=== PATIENT | male | born 1940 | race Caucasian/White ===

== ENCOUNTER 2018-06-04 14:28 | Day surgery (SDC) | payer OTHER, MEDICARE ==
[2018-05-31 13:22] LABS: BASOPHILS # (AUTO) 0.1 X10'3 (0-0.2); BASOPHILS % (AUTO) 0.6 % (0-1); EOSINOPHILS # (AUTO) 0.1 X10'3 (0-0.9); EOSINOPHILS % (AUTO) 1.6 % (0-6); HEMATOCRIT 42.7 % (42.0-52.0); HEMOGLOBIN 14.9 g/dl (14.0-17.9); LYMPHOCYTES # (AUTO) 1.4 X10'3 (1.1-4.8); MEAN CORPUSCULAR HEMOGLOBIN 32.6 PG (27.0-31.0); MEAN CORPUSCULAR HGB CONC 34.9 g/dL (33.0-36.5); MEAN CORPUSCULAR VOLUME 93.3 FL (78-98); MEAN PLATELET VOLUME 8.1 FL (7.4-10.4); MONOCYTES # (AUTO) 0.4 X10'3 (0-0.9); NEUTROPHILS # (AUTO) 6.7 X10'3 (1.8-7.7); NEUTROPHILS % (AUTO) 76.8 % (42-75); PLATELET COUNT 179 X10'3 (140-440); RED BLOOD COUNT 4.58 X10'6 (4.70-6.10); RED CELL DISTRIBUTION WIDTH 13.7 % (11.5-14.5); WHITE BLOOD COUNT 8.7 X10'3 (4.5-11.0)
[2018-05-31 13:31] LABS: ANION GAP 7 (8-16); BLOOD UREA NITROGEN 18 MG/DL (7-18); BUN/CREATININE RATIO 12.4 (5.4-32.0); CALCIUM 9.3 MG/DL (8.5-10.1); CHLORIDE 102 MMOL/L (99-107); CREATININE 1.45 MG/DL (0.60-1.10); GLUCOSE 93 MG/DL (70-104); POTASSIUM 4.3 MMOL/L (3.5-5.1); SODIUM 138 MMOL/L (135-145); TOTAL CARBON DIOXIDE 28.8 MMOL/L (24-32); eGFR 47 ML/MIN
[2018-05-31 13:34] LABS: INR 1.1 INR; PARTIAL THROMBOPLASTIN TIME 28 SECONDS (22-32); PROTHROMBIN TIME 11.1 SECONDS (9.0-12.0)
[2018-06-04] VITALS (12 sets, daily range): BP systolic 103–133; BP diastolic 57–88
[~2018-06-04] VITALS: Ht 188 cm; Wt 89.4 kg
[~2018-06-04 14:28] MED LIST: DULO-31 PO; GABA-532 PO; GLIP10TA11 PO; HYDR-3964 PO; METF500T PO; NORT25CA PO; OMEP20TA5 PO; PRAZ1CAP5 PO; SILD50TA PO; TRAM50TA2 PO
[2018-06-04] MEDS ORDERED: normal saline 1000ml 1,000 ML IV SCH (14:50)
[2018-06-04] MEDS ORDERED: fentaNYL/PF 50MCG/1 ML 2ML syringe IV ONE (14:50)
[2018-06-04] MEDS ORDERED: MIDAZolam 5mg/ml 2ml vial IV ONE (14:50)
[2018-06-04] MEDS ORDERED: APIX5TAB3 PO (15:46)
[2018-06-04] MEDS ORDERED: DILT120C20 PO (15:46)
[2018-06-04] MEDS ORDERED: METO200T49 PO (15:46)
[2018-06-04] MEDS ORDERED: AMIO200T40 PO (15:46)
== END 2018-06-04 20:05 | disposition home or self-care (01) ==
LOC: SSTAY O 14:28
PROVIDERS: ATTEND Internal Medicine Interventional Cardiology
DX: I48.91 Unspecified atrial fibrillation (principal); I50.9 Heart failure, unspecified; I42.9 Cardiomyopathy, unspecified; E11.40 Type 2 diabetes mellitus with diabetic neuropathy, unspecified; F43.10 Post-traumatic stress disorder, unspecified; Z79.899 Other long term (current) drug therapy; Z88.0 Allergy status to penicillin; Z79.4 Long term (current) use of insulin; Z72.89 Other problems related to lifestyle
CPT/HCPCS: 36415; 80048; 82948; 85025; 85610; 85730; 92960; 93005; J2250; J3010; J7030

== ENCOUNTER 2018-08-28 09:47 | Day surgery (SDC) | payer OTHER, MEDICARE ==
[2018-08-22 14:33] LABS: BASOPHILS # (AUTO) 0.1 X10'3 (0-0.2); EOSINOPHILS # (AUTO) 0.4 X10'3 (0-0.9); EOSINOPHILS % (AUTO) 5.2 % (0-6); HEMATOCRIT 38.5 % (42.0-52.0); HEMOGLOBIN 13.2 g/dl (14.0-17.9); LYMPHOCYTES # (AUTO) 1.5 X10'3 (1.1-4.8); LYMPHOCYTES % (AUTO) 21.4 % (21-51); MEAN CORPUSCULAR HEMOGLOBIN 32.8 PG (27.0-31.0); MEAN CORPUSCULAR HGB CONC 34.2 g/dL (33.0-36.5); MEAN CORPUSCULAR VOLUME 96.2 FL (78-98); MONOCYTES # (AUTO) 0.5 X10'3 (0-0.9); MONOCYTES % (AUTO) 7.3 % (2-12); NEUTROPHILS # (AUTO) 4.4 X10'3 (1.8-7.7); NEUTROPHILS % (AUTO) 65.1 % (42-75); PLATELET COUNT 196 X10'3 (140-440); RED CELL DISTRIBUTION WIDTH 13.4 % (11.5-14.5); WHITE BLOOD COUNT 6.8 X10'3 (4.5-11.0)
[2018-08-22 14:35] LABS: CHLORIDE 101 MMOL/L (99-107); GLUCOSE 241 MG/DL (70-104); SODIUM 135 MMOL/L (135-145)
[2018-08-22 14:36] LABS: ALBUMIN 3.7 G/DL (3.4-5.0); ANION GAP 5 (8-16); BLOOD UREA NITROGEN 23 MG/DL (7-18); BUN/CREATININE RATIO 17.7 (5.4-32.0); CALCIUM 9.1 MG/DL (8.5-10.1); TOTAL CARBON DIOXIDE 29.3 MMOL/L (24-32); eGFR 54 ML/MIN
[2018-08-22 14:41] LABS: PARTIAL THROMBOPLASTIN TIME 28 SECONDS (22-32)
[2018-08-28] VITALS (11 sets, daily range): BP systolic 110–120; BP diastolic 50–77
[~2018-08-28] VITALS: Ht 188 cm; Wt 93.3 kg
[~2018-08-28 09:47] MED LIST changes: +AMIO200T40 PO; +APIX5TAB3 PO; +DILT120C20 PO; -HYDR-3964 PO; +METO200T49 PO; -NORT25CA PO; -PRAZ1CAP5 PO; -SILD50TA PO; -TRAM50TA2 PO
[2018-08-28] MEDS ORDERED: LORazepam 0.5 MG tablet PO PRN (10:15)
[2018-08-28] MEDS ORDERED: normal saline 1,000 ML IV SCH (10:15)
[2018-08-28] MEDS ORDERED: diphenhydrAMINE 25mg capsule PO PRN (10:15)
[2018-08-28] MEDS ORDERED: SOTA80TA73 PO (10:36)
[2018-08-28] MEDS ORDERED: MAGN420T PO (10:36)
[2018-08-28] MEDS ORDERED: LACTC PO (10:36)
[2018-08-28] MEDS ORDERED: UREA TOP (10:36)
[2018-08-28] MEDS ORDERED: PRAZ1CAP5 PO (10:36)
[2018-08-28] MEDS ORDERED: LEVO50TA PO (10:36)
[2018-08-28] MEDS ORDERED: [UNRECOGNIZED DRUG - CODE] TOP (10:36)
[2018-08-28] MEDS ORDERED: METO100T7 PO (10:39)
[2018-08-28] MEDS ORDERED: fentaNYL/PF 50MCG/1 ML 2ML syringe ONE (12:27)
[2018-08-28] MEDS ORDERED: LIDOcaine 1% (10mg/ml)w/preservative injection 20ml MDV ONE (12:27)
[2018-08-28] MEDS ORDERED: midazolam 2 mg/2 ml injection ONE (12:27)
[2018-08-28] MEDS ORDERED: iohexol 350MG/ML 100ml bottle IV ONE (12:27)
[2018-08-28] MEDS ORDERED: proCHLORperazine 10 MG/2 ml inj IV PRN (14:10)
[2018-08-28] MEDS ORDERED: OXAZEpam 15mg capsule PO PRN (14:10)
[2018-08-28] MEDS ORDERED: HYDROcodone/acetaminophen 5mg/325mg tablet PO PRN (14:10)
[2018-08-28] MEDS ORDERED: ondansetron/PF 4mg/2ml inj IV PRN (14:10)
[2018-08-28] MEDS ORDERED: HYDROcodone/acetaminophen 10/325mg tab PO PRN (14:10)
[2018-08-28] MEDS ORDERED: nitroGLYCERIN 0.4mg SUBLingual tab SL PRN (14:10)
== END 2018-08-28 19:30 | disposition home or self-care (01) ==
LOC: SSTAY O 09:47
PROVIDERS: ATTEND Internal Medicine Interventional Cardiology
DX: I25.10 Atherosclerotic heart disease of native coronary artery without angina pectoris (principal); I42.9 Cardiomyopathy, unspecified; E11.9 Type 2 diabetes mellitus without complications; I48.0 Paroxysmal atrial fibrillation; F17.200 Nicotine dependence, unspecified, uncomplicated
CPT/HCPCS: 36415; 80048; 82948; 85025; 85610; 85730; 93458; 99152; 99153; A6257; C1769; J1644; J2001; J2250; J3010; J7030; Q0163; Q9967; 93005; A4620